=== PATIENT | male | born 1975 | race American Indian/Alaskan Native ===

== ENCOUNTER 2018-05-04 23:10 | Observation (INO) | payer SELFPAY ==
[2018-05-04 23:11] VITALS: BMI 38.4
--- NOTE | 2018-05-05 03:58 | ED PDOC ---
HPI: Psych/Substance Abuse Time Seen by Provider: 05/05/18 00:55 Chief Complaint (Nursing): Psychiatric Evaluation Chief Complaint (Provider): Psychiatric Evaluation History Per: Patient History/Exam Limitations: no limitations Onset/Duration Of Symptoms: Days (x 1) Current Symptoms Are (Timing): Still Present Modifying Factor(s): Alcohol Associated Symptoms: Suicidal Thoughts Additional Complaint(s): 42 year old male with a history of IVDA and alcohol abuse presents to the ED via EMS for evaluation of suicidal ideation. Patient reports feeling depressed with suicidal thoughts for one week, worsening today, prompting visit to the ED. Patient states he has a plan to get a gun and shoot himself. He appears to be intoxicated and admits to drinking alcohol tonight. Offers no medical complaints. PMD: none Past Medical History Reviewed: Historical Data Vital Signs: Last Vital Signs Temp 97.8 F 05/05/18 00:37 Pulse 79 05/05/18 00:37 Resp 18 05/05/18 00:37 BP 170/108 H 05/05/18 00:37 Pulse Ox 100 05/05/18 00:37 - Medical History PMH: Depression, Diabetes, HTN, Post Traumatic Stress Disorder - Surgical History Surgical History: No Surg Hx - Family History Family History: States: Unknown Family Hx - Immunization History Hx Tetanus Toxoid Vaccination: No Hx Influenza Vaccination: No Hx Pneumococcal Vaccination: No - Home Medications Home Medications: Ambulatory Orders Medication Instructions Recorded Famotidine [Pepcid] 20 mg PO BID #20 tab 03/25/17 Ibuprofen [Motrin Tab] 600 mg PO Q8 #30 tab 03/25/17 chlordiazePOXIDE [Chlordiazepoxide 25 mg PO BID 03/25/17 HCl] metFORMIN [glucOPHAGE] 500 mg PO BID 03/25/17 Gabapentin [Neurontin] 300 mg PO BID #60 cap 04/01/18 hydrOXYzine HCl [Atarax] 25 mg PO DAILY PRN #30 tab 04/01/18 metFORMIN [glucOPHAGE] 500 mg PO BID #60 tab 04/01/18 traZODone [Desyrel] 100 mg PO HS PRN #30 tab 04/01/18 - Allergies Allergies/Adverse Reactions: Allergies Allergy/AdvReac Type Severity Reaction Status Date / Time No Known Allergies Allergy Verified 05/05/18 00:37 Review of Systems ROS Statement: Except As Marked, All Systems Reviewed And Found Negative Psych: Positive for: Suicidal ideation Physical Exam - Reviewed Nursing Documentation Reviewed: Yes Vital Signs Reviewed: Yes - Physical Exam Appears: Positive for: Non-toxic, No Acute Distress (appears intoxicated) Head Exam: Positive for: ATRAUMATIC, NORMAL INSPECTION, NORMOCEPHALIC Skin: Positive for: Normal Color, Warm, Dry Eye Exam: Positive for: EOMI, Normal appearance, PERRL Neck: Positive for: Normal, Painless ROM, Supple Cardiovascular/Chest: Positive for: Regular Rate, Rhythm. Negative for: Murmur Respiratory: Positive for: Normal Breath Sounds. Negative for: Wheezing, Respiratory Distress Gastrointestinal/Abdominal: Positive for: Normal Exam, Soft. Negative for: Tenderness, Mass, Guarding Back: Positive for: Normal Inspection. Negative for: L CVA Tenderness, R CVA Tenderness Extremity: Positive for: Normal ROM. Negative for: Deformity Neurological/Psych: Positive for: Awake, Alert, Normal Tone, Mood/Affect (flat affect). Negative for: Motor/Sensory Deficits - Laboratory Results Result Diagrams: 05/06/18 04:30 05/06/18 04:30 - ECG O2 Sat by Pulse Oximetry: 100 (RA) Pulse Ox Interpretation: Normal Medical Decision Making Medical Decision Makin:42 Impression: alcohol intoxication and suicidal ideation Initial Plan: --Acetaminophen --Salicylate --UDS --CBC --BMP --Crisis evaluation --1:1 observation 07:00 Patient will be signed to Dr. Dominguez pending repeat CBC and reevaluation. Scribe Attestation: Documented by Elizabeth Carney acting as a scribe for Esme Crowe MD. Provider Scribe Attestation: All medical record entries made by the Scribe were at my direction and personally dictated by me. I have reviewed the chart and agree that the record accurately reflects my personal performance of the history, physical exam, medical decision making, and the department course for this patient. I have also personally directed, reviewed, and agree with the discharge instructions and disposition. Disposition - Clinical Impression Clinical Impression: Depression, Abnormal electrocardiogram [ECG] [EKG], Substance abuse - Patient ED Disposition Is Patient to be Admitted: Transfer of Care - Disposition Disposition: Transfer of Care Disposition Time: 07:00 Condition: FAIR
[2018-05-05 04:31] LABS: BASO # 0.1 K/uL (0.0-0.2); BASO % 1.2 % (0.0-2.0); EOS # 0.2 K/uL (0.0-0.7); EOS % 3.1 % (0.0-4.0); HEMOGLOBIN 13.1 g/dL (12.0-18.0); LYMPH # 2.7 K/uL (1.0-4.3); LYMPH % 40.3 % (20.0-40.0); MEAN CELL VOLUME 84.5 fl (80.0-94.0); MEAN CORPUSCULAR HEMOGLOBIN 28.6 pg (27.0-31.0); MEAN CORPUSCULAR HGB CONC 33.9 g/dL (33.0-37.0); MEAN PLATELET VOLUME 7.2 fl (7.2-11.7); MONO # 0.6 K/uL (0.0-0.8); NEUT # 3.2 K/uL (1.8-7.0); NEUT % 46.4 % (50.0-75.0); NRBC % 0.2 % (0.0-0.0); RBC 4.59 Mil/uL (4.40-5.90); RED CELL DISTRIBUTION WIDTH 13.3 % (11.5-14.5); WHITE BLOOD COUNT 6.8 K/uL (4.8-10.8)
[2018-05-05 04:35] LABS: ACETAMINOPHEN < 10.0 ug/ml (10.0-30.0); SALICYLATE < 1.0 mg/dl
[2018-05-05 04:37] LABS: BLOOD UREA NITROGEN 21 mg/dl (9-20); CALCIUM 9.1 mg/dL (8.4-10.2); GFR NON-AFRICAN AMERICAN > 60
--- NOTE | 2018-05-05 07:23 | ED PDOC ---
- Laboratory Results Result Diagrams: 05/05/18 04:24 05/05/18 04:24 - ECG O2 Sat by Pulse Oximetry: 100 (RA) Pulse Ox Interpretation: Normal Medical Decision Making Medical Decision Makin 42yo male, brought to ER due to suicidal ideation. Patient signed out to me by Dr. Crowe pending crisis evaluation and ER disposition. Bedside rounds performed, patient resting in room comfortably. 721 Patient seen and evaluated by crisis team and per Dr. Nelson, patient to be admitted due to depression. 803 EKG reviewed, patient noted to have gross ST abnormalities in anterolateral leads. no prior ekgs available for comparison in EMR./ Patient admits to using cocaine recently; additionally states he has had intermittent chest pain for the past week, no active chest pain currently. At this time, patient is not medically cleared for psychiatric admission. Patient to be admitted medically, Troponin I ordered; patient given aspirin 3 25mg PO 0849 Discussed with hospitalist business control specialist, and Dr. Ballesteros accepts patient for admission. --- Scribe Attestation: Documented by Shireen Guerra acting as a scribe for Tha Dominguez DO. Provider Scribe Attestation: All medical record entries made by the Scribe were at my direction and personally dictated by me. I have reviewed the chart and agree that the record accurately reflects my personal performance of the history, physical exam, medical decision making, and the department course for this patient. I have also personally directed, reviewed, and agree with the discharge instructions and di sposition. Disposition Counseled Patient/Family Regarding: Studies Performed - Clinical Impression Clinical Impression: Depression, Abnormal electrocardiogram [ECG] [EKG], Substance abuse - POA Present On Arrival: None - Disposition Disposition: Hospitalized as Observation Patient Disposition Time: 09:00 Condition: FAIR
[2018-05-05 08:54] LABS: SPERM URINE RARE /hpf; URINE BILIRUBIN NEGATIVE (NEGATIVE); URINE BLOOD NEGATIVE (NEGATIVE); URINE CLARITY CLEAR (Clear); URINE COLOR YELLOW (YELLOW); URINE GLUCOSE (UA) NEG (NEGATIVE); URINE LEUKOCYTE ESTERASE NEG Leu/uL (Negative); URINE PROTEIN NEGATIVE (NEGATIVE); URINE UROBILINOGEN 0.2-1.0 mg/dL (0.2-1.0)
--- NOTE | 2018-05-05 08:54 | RAD ---
Date of service: 05/05/2018 HISTORY: r/o infiltrate COMPARISON: Chest radiographs 04/12/2015. FINDINGS: LUNGS: No active pulmonary disease. PLEURA: No significant pleural effusion identified, no pneumothorax apparent. CARDIOVASCULAR: No aortic atherosclerotic calcification present. Normal cardiac size. No pulmonary vascular congestion. OSSEOUS STRUCTURES: No significant abnormalities. VISUALIZED UPPER ABDOMEN: Normal. OTHER FINDINGS: None. IMPRESSION: No interval acute cardiopulmonary disease appreciated.
--- NOTE | 2018-05-05 08:59 | CARD ---
APPROVED REPORT Date of service: 05/05/2018 EKG Measurement Heart [id number] <Conclusion> Normal sinus rhythm Possible Left atrial enlargement Left axis deviation T wave abnormality, consider anterolateral ischemia Prolonged QT Abnormal ECG
[2018-05-05 09:13] LABS: BARBITURATES, UR NEGATIVE (NEGATIVE); BENZODIAZEPINES, UR NEGATIVE (NEGATIVE); OPIATES, UR POSITIVE (NEGATIVE); PHENCYCLIDINE, UR POSITIVE (NEGATIVE)
--- NOTE | 2018-05-05 09:13 | CP.PCM.HP ---
<Eric Winters - Last Filed: 05/05/18 14:31> History of Present Illness - History of Present Illness History of Present Illness: 42 yo M with pmhx of htn, DM, depression, IVDA, and alcohol abuse presents to the ED with suicidal ideation. Suicidal thoughts for 1 week. Pt denies current suicidal plan, however, reports history of having a plan to get a gun and shoot himself. While in the ED, EKG showed changes. Pt reported intermittent chest pain, however, denies them at present. Denies HI/A/VH PMD: none Surg: none Soc: smokes 2 cigarettes per day for 4 years. Drinks beers (unknown amt) daily. Reports recent cocaine and heroin use. Famhx: none NKDA Present on Admission - Present on Admission Any Indicators Present on Admission: Yes History of Uncontrolled Diabetes: Yes Review of Systems - Review of Systems Systems not reviewed;Unavailable: Uncooperative, Psychotic - Cardiovascular Cardiovascular: absent: Chest Pain - Respiratory Respiratory: absent: Cough - Gastrointestinal Gastrointestinal: absent: Abdominal Pain Past Patient History - Infectious Disease Hx of Infectious Diseases: None - Past Medical History & Family History Past Medical History?: Yes - Past Social History Smoking Status: Light Smoker < 10 Cigarettes Daily Alcohol: > 2 Drinks/Day Drugs: Cocaine, Opiates - CARDIAC Hx Hypertension: Yes - PULMONARY Hx Tuberculosis: No - NEUROLOGICAL HX Cerebrovascular Accident: No Hx Seizures: No - ENDOCRINE/METABOLIC Hx Endocrine Disorders: Yes Hx Diabetes Mellitus Type 2: Yes - HEMATOLOGICAL/ONCOLOGICAL Hx Cancer: No Hx Human Immunodeficiency Virus (HIV): No - MUSCULOSKELETAL/RHEUMATOLOGICAL Hx Falls: No (pt denied) - GENITOURINARY/GYNECOLOGICAL Hx Sexually Transmitted Disorders: No - PSYCHIATRIC Hx Depression: Yes Hx Post Traumatic Stress Disorder: Yes - SURGICAL HISTORY Hx Surgeries: Yes Hx Cardiac Catheterization: Yes - ANESTHESIA Hx Anesthesia: Yes Hx Anesthesia Reactions: No Meds Allergies/Adverse Reactions: Allergies Allergy/AdvReac Type Severity Reaction Status Date / Time No Known Allergies Allergy Verified 05/05/18 00:37 Physical Exam - Constitutional Appears: Unkempt, Agitated - Eye Exam Eye Exam: EOMI - ENT Exam ENT Exam: Mucous Membranes Moist - Respiratory Exam Respiratory Exam: Clear to Auscultation Bilateral, NORMAL BREATHING PATTERN. absent: Wheezes - Cardiovascular Exam Cardiovascular Exam: REGULAR RHYTHM, +S1, +S2 - GI/Abdominal Exam GI & Abdominal Exam: Normal Bowel Sounds, Soft. absent: Tenderness - Neurological Exam Neurological exam: Alert - Psychiatric Exam Psychiatric exam: Agitated, Anxious, Suicidal Ideation Results - Vital Signs Recent Vital Signs: Last Vital Signs Temp 97.6 F 05/05/18 07:50 Pulse 75 05/05/18 07:50 Resp 19 05/05/18 07:50 BP 150/98 H 05/05/18 07:50 Pulse Ox 100 05/05/18 08:50 - Labs Result Diagrams: 05/05/18 04:24 05/05/18 04:24 Labs: Laboratory Results - last 24 hr 05/05/18 05/05/18 05/05/18 04:24 04:24 04:24 WBC 6.8 RBC 4.59 Hgb 13.1 Hct 38.8 MCV 84.5 MCH 28.6 MCHC 33.9 RDW 13.3 Plt Count 281 MPV 7.2 Neut % (Auto) 46.4 L Lymph % (Auto) 40.3 H [place] % (Auto) 9.0 Eos % (Auto) 3.1 Baso % (Auto) 1.2 Neut # (Auto) 3.2 Lymph # (Auto) 2.7 [place] # (Auto) 0.6 Eos # (Auto) 0.2 Baso # (Auto) 0.1 Sodium 137 Potassium 4.2 Chloride 105 Carbon Dioxide 29 Anion Gap 7 L BUN 21 H Creatinine 0.9 Est GFR ( Amer) > 60 Est GFR (Non-Af Amer) > 60 Random Glucose 74 L Calcium 9.1 Troponin I Urine Color Urine Clarity Urine pH Ur Specific [place] Urine Protein Urine Glucose (UA) Urine Ketones Urine Blood Urine Nitrate Urine Bilirubin Urine Urobilinogen Ur Leukocyte Esterase Urine RBC (Auto) Urine Microscopic WBC Urine Sperm (Auto) Salicylates < 1.0 Urine Methadone Screen Acetaminophen < 10.0 L Ur Amphetamines Screen U Cannabinoids Screen Alcohol, Quantitative < 10 05/05/18 05/05/18 05/05/18 08:30 08:30 08:30 WBC RBC Hgb Hct MCV MCH MCHC RDW Plt Count MPV Neut % (Auto) Lymph % (Auto) [place] % (Auto) Eos % (Auto) Baso % (Auto) Neut # (Auto) Lymph # (Auto) [place] # (Auto) Eos # (Auto) Baso # (Auto) Sodium Potassium Chloride Carbon Dioxide Anion Gap BUN Creatinine Est GFR ( Amer) Est GFR (Non-Af Amer) Random Glucose Calcium Troponin I < 0.0120 Urine Color Yellow Urine Clarity Clear Urine pH 6.0 Ur Specific [place] 1.020 Urine Protein Negative Urine Glucose (UA) Neg Urine Ketones Negative Urine Blood Negative Urine Nitrate Negative Urine Bilirubin Negative Urine Urobilinogen 0.2-1.0 Ur Leukocyte Esterase Neg Urine RBC (Auto) 3 Urine Microscopic WBC 2 Urine Sperm (Auto) Rare H Salicylates Urine Methadone Screen Negative Acetaminophen Ur Amphetamines Screen Negative U Cannabinoids Screen Negative Alcohol, Quantitative Assessment & Plan - Assessment and Plan (Free Text) Assessment: 42 yo M with pmhx of htn, DM, depression, IVDA, and alcohol abuse presents to the ED with suicidal ideation, admitted for acute EKG changes and intermittent chest pain. Plan: Chest pain: -EKG: reviewed -Admit to tele -fret saw operator -Troponin: neg x1 f/u x2 q6 -monitor for chest pain -f/u troponin, EKG Suicidal Ideation -Psychiatry: Dr. Roe: further recs appreciated -1:1 ovservation IVDA -TOX: cocaine, PCP -monitor for withdrawals Diabetes -accuchecks -ICS -hypoglycemia protocol htn -likely 2/2 pcp -monitor bp DVT prophylaxis -SCD Case and plan d/w Dr. Thanh Winters MD PGY2 <Tasia Law - Last Filed: 05/06/18 19:09> Results - Vital Signs Recent Vital Signs: Last Vital Signs Temp 98 F 05/06/18 00:00 Pulse 66 05/06/18 09:00 Resp 22 05/06/18 09:00 BP 140/71 05/06/18 09:00 Pulse Ox 100 05/06/18 04:00 - Labs Result Diagrams: 05/06/18 04:30 05/06/18 04:30 Labs: Laboratory Results - last 24 hr 05/06/18 05/06/18 04:30 04:30 WBC 6.8 RBC 5.03 Hgb 14.2 Hct 43.1 MCV 85.8 MCH 28.3 MCHC 33.0 RDW 13.4 Plt Count 298 Sodium 140 Potassium 4.2 Chloride 107 Carbon Dioxide 26 Anion Gap 11 BUN 13 Creatinine 0.9 Est GFR ( Amer) > 60 Est GFR (Non-Af Amer) > 60 Random Glucose 108 Calcium 9.4 Total Bilirubin 0.7 AST 24 ALT 22 Alkaline Phosphatase 80 Total Protein 6.7 Albumin 3.6 Globulin 3.1 Albumin/Globulin Ratio 1.2 Attending/Attestation - Attestation I have personally seen and examined this patient.: Yes I have fully participated in the care of the patient.: Yes I have reviewed all pertinent clinical information: Yes Notes (Text): 05/06/18 19:08 Agree with findings and plan as above.
[2018-05-05] MEDS ORDERED: Glucagon Recombinant 1 mg Inj IM PRN (09:19)
[2018-05-05] MEDS ORDERED: Dextrose 50% SYRINGE Inj (50 ml) IV PRN (09:19)
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
[2018-05-05] MEDS ORDERED: Alum-Mag Hydrox-Simethicone Susp (30 mL) PO PRN (09:57)
[2018-05-05] MEDS ORDERED: Pneumococcal 23-Valent Vaccine IM ONE (10:51)
[2018-05-05] MEDS ORDERED: Influenza Vaccine (5 YR UP)/PF 60 MCG/0.5 ML SYR IM ONE (11:03)
[2018-05-05] MEDS ORDERED: Influenza Vaccine 60 mcg/0.5 mL SYR (4YR UP) IM ONE (11:15)
[2018-05-06 00:51] VITALS: TEMP 98
[2018-05-06 04:13] VITALS: O2SAT 100
[2018-05-06 05:36] LABS: HEMOGLOBIN 14.2 g/dL (12.0-18.0); MEAN CELL VOLUME 85.8 fl (80.0-94.0); MEAN CORPUSCULAR HEMOGLOBIN 28.3 pg (27.0-31.0); RBC 5.03 Mil/uL (4.40-5.90); RED CELL DISTRIBUTION WIDTH 13.4 % (11.5-14.5); WHITE BLOOD COUNT 6.8 K/uL (4.8-10.8)
[2018-05-06 05:40] LABS: ALB/GLOB RATIO 1.2 (1.0-2.1); ALBUMIN 3.6 g/dL (3.5-5.0); ALT/SGPT 22 U/L (21-72); AST/SGOT 24 U/L (17-59); BLOOD UREA NITROGEN 13 mg/dl (9-20); CALCIUM 9.4 mg/dL (8.4-10.2); GFR NON-AFRICAN AMERICAN > 60
[2018-05-06 08:42] VITALS: BP 140/71
[2018-05-06 09:48] VITALS: PULSE 66; RESP 22
--- NOTE | 2018-05-06 10:17 | CP.PCM.CON ---
History of Present Illness - History of Present Illness History of Present Illness: I have attempted to see the patient at Dr. Giang's request. Patient declined to be examined by me and asked me to leave the room. I have discussed the situation with Dr. Giang. Past Patient History - Infectious Disease Hx of Infectious Diseases: None - Past Medical History & Family History Past Medical History?: Yes - Past Social History Smoking Status: Light Smoker < 10 Cigarettes Daily Alcohol: > 2 Drinks/Day Drugs: Cocaine, Opiates - CARDIAC Hx Hypertension: Yes - PULMONARY Hx Tuberculosis: No - NEUROLOGICAL HX Cerebrovascular Accident: No Hx Seizures: No - ENDOCRINE/METABOLIC Hx Endocrine Disorders: Yes Hx Diabetes Mellitus Type 2: Yes - HEMATOLOGICAL/ONCOLOGICAL Hx Cancer: No Hx Human Immunodeficiency Virus (HIV): No - MUSCULOSKELETAL/RHEUMATOLOGICAL Hx Falls: No (pt denied) - GENITOURINARY/GYNECOLOGICAL Hx Sexually Transmitted Disorders: No - PSYCHIATRIC Hx Depression: Yes Hx Post Traumatic Stress Disorder: Yes - SURGICAL HISTORY Hx Surgeries: Yes Hx Cardiac Catheterization: Yes - ANESTHESIA Hx Anesthesia: Yes Hx Anesthesia Reactions: No Meds Allergies/Adverse Reactions: Allergies Allergy/AdvReac Type Severity Reaction Status Date / Time No Known Allergies Allergy Verified 05/05/18 00:37 - Medications Medications: Current Medications Al Hydrox/Mg Hydrox/Simethicone (Maalox Plus 30 Ml) 30 ml PO QID PRN PRN Reason: Abdominal Discomfort Clonidine HCl (Catapres) 0.1 mg PO Q8 [facility] Stop: 05/08/18 17:01 Last Admin: 05/06/18 08:38 Dose: 0.1 mg Dextrose (Dextrose 50% Inj) 0 ml IV STAT PRN; Protocol PRN Reason: Hypoglycemia Protocol Dextrose (Glutose 15) 0 gm PO ONCE PRN; Protocol PRN Reason: Hypoglycemia Protocol Escitalopram Oxalate (Lexapro) 5 mg PO DAILY [facility] Famotidine (Pepcid) 20 mg PO BID [facility] Last Admin: 05/06/18 08:41 Dose: 20 mg Gabapentin (Neurontin) 300 mg PO BID [facility] Last Admin: 05/05/18 16:08 Dose: 300 mg Glucagon (Glucagen Diagnostic Kit) 0 mg IM STAT PRN; Protocol PRN Reason: Hypoglycemia Protocol Ibuprofen (Motrin Tab) 600 mg PO Q6 PRN PRN Reason: Pain, moderate (4-7) Loperamide HCl (Imodium) 2 mg PO Q4 PRN PRN Reason: After Loose Bowel Movement Lorazepam (Ativan) 0.5 mg IM Q4H PRN PRN Reason: Agitation Ondansetron HCl (Zofran Tab) 4 mg PO Q6 PRN PRN Reason: Nausea/Vomiting Trazodone HCl (Desyrel) 100 mg PO HS PRN PRN Reason: Insomnia Results - Vital Signs Recent Vital Signs: Last Vital Signs Temp 98 F 05/06/18 00:00 Pulse 66 05/06/18 09:00 Resp 22 05/06/18 09:00 BP 140/71 05/06/18 09:00 Pulse Ox 100 05/06/18 04:00 - Labs Result Diagrams: 05/06/18 04:30 05/06/18 04:30 Labs: Laboratory Results - last 24 hr 05/05/18 05/06/18 05/06/18 17:30 04:30 04:30 WBC 6.8 RBC 5.03 Hgb 14.2 Hct 43.1 MCV 85.8 MCH 28.3 MCHC 33.0 RDW 13.4 Plt Count 298 Sodium 140 Potassium 4.2 Chloride 107 Carbon Dioxide 26 Anion Gap 11 BUN 13 Creatinine 0.9 Est GFR ( Amer) > 60 Est GFR (Non-Af Amer) > 60 Random Glucose 108 Calcium 9.4 Total Bilirubin 0.7 AST 24 ALT 22 Alkaline Phosphatase 80 Troponin I < 0.0120 Total Protein 6.7 Albumin 3.6 Globulin 3.1 Albumin/Globulin Ratio 1.2
--- NOTE | 2018-05-06 10:37 | CP.PCM.CON ---
History of Present Illness - History of Present Illness History of Present Illness: This is a 42 yr old male with h/o opiate abuse,cocaine and PCP abuse and recentlly d/c from [facility] detox.and admitted for withdrawl fron opiate and abnormal EKG to ICU and pt was seen by dr lopes in the ER and pt expressed suicudal thoughts wanting to shoot himself and placed on 1:1 observation. .Psych consult requested for reevaluation as pt wants to sign out today and denies any psychiatruc issues. pt states that he was under the influence of multiple drugs including cocaine and opiates and does not recall making any suicidal statement and has no attention of hurting self or otherss.pt understands that he need to go for opiate rehab and [facility] once he is d/c .pt understands his medical issues and need for continued treatment but does not want to stay in hospital and wants to go to opiate rehab.pt is able to contract for safety and willing to seek outpt medical treatment and wants to stop abusing illicit drugs . Past Patient History - Infectious Disease Hx of Infectious Diseases: None - Past Medical History & Family History Past Medical History?: Yes - Past Social History Smoking Status: Light Smoker < 10 Cigarettes Daily Alcohol: > 2 Drinks/Day Drugs: Cocaine, Opiates - CARDIAC Hx Hypertension: Yes - PULMONARY Hx Tuberculosis: No - NEUROLOGICAL HX Cerebrovascular Accident: No Hx Seizures: No - ENDOCRINE/METABOLIC Hx Endocrine Disorders: Yes Hx Diabetes Mellitus Type 2: Yes - HEMATOLOGICAL/ONCOLOGICAL Hx Cancer: No Hx Human Immunodeficiency Virus (HIV): No - MUSCULOSKELETAL/RHEUMATOLOGICAL Hx Falls: No (pt denied) - GENITOURINARY/GYNECOLOGICAL Hx Sexually Transmitted Disorders: No - PSYCHIATRIC Hx Depression: Yes Hx Post Traumatic Stress Disorder: Yes - SURGICAL HISTORY Hx Surgeries: Yes Hx Cardiac Catheterization: Yes - ANESTHESIA Hx Anesthesia: Yes Hx Anesthesia Reactions: No Meds Allergies/Adverse Reactions: Allergies Allergy/AdvReac Type Severity Reaction Status Date / Time No Known Allergies Allergy Verified 05/05/18 00:37 - Medications Medications: Current Medications Al Hydrox/Mg Hydrox/Simethicone (Maalox Plus 30 Ml) 30 ml PO QID PRN PRN Reason: Abdominal Discomfort Clonidine HCl (Catapres) 0.1 mg PO Q8 OSMIN Stop: 05/08/18 17:01 Last Admin: 05/06/18 08:38 Dose: 0.1 mg Dextrose (Dextrose 50% Inj) 0 ml IV STAT PRN; Protocol PRN Reason: Hypoglycemia Protocol Dextrose (Glutose 15) 0 gm PO ONCE PRN; Protocol PRN Reason: Hypoglycemia Protocol Escitalopram Oxalate (Lexapro) 5 mg PO DAILY [facility] Famotidine (Pepcid) 20 mg PO BID [facility] Last Admin: 05/06/18 08:41 Dose: 20 mg Gabapentin (Neurontin) 300 mg PO BID [facility] Last Admin: 05/05/18 16:08 Dose: 300 mg Glucagon (Glucagen Diagnostic Kit) 0 mg IM STAT PRN; Protocol PRN Reason: Hypoglycemia Protocol Ibuprofen (Motrin Tab) 600 mg PO Q6 PRN PRN Reason: Pain, moderate (4-7) Loperamide HCl (Imodium) 2 mg PO Q4 PRN PRN Reason: After Loose Bowel Movement Lorazepam (Ativan) 0.5 mg IM Q4H PRN PRN Reason: Agitation Ondansetron HCl (Zofran Tab) 4 mg PO Q6 PRN PRN Reason: Nausea/Vomiting Trazodone HCl (Desyrel) 100 mg PO HS PRN PRN Reason: Insomnia Physical Exam - Psychiatric Exam Psychiatric exam: Normal Affect, Normal Mood Additional comments: Pt is alert,oriented x3 with intact cogntion.no psychosis.pt adamantly denies suicidal and homicidal ideation.stable mood and fajr insight and wants to go for opiate rehab. Results - Vital Signs Recent Vital Signs: Last Vital Signs Temp 98 F 05/06/18 00:00 Pulse 66 05/06/18 09:00 Resp 22 05/06/18 09:00 BP 140/71 05/06/18 09:00 Pulse Ox 100 05/06/18 04:00 - Labs Result Diagrams: 05/06/18 04:30 05/06/18 04:30 Labs: Laboratory Results - last 24 hr 05/05/18 05/06/18 05/06/18 17:30 04:30 04:30 WBC 6.8 RBC 5.03 Hgb 14.2 Hct 43.1 MCV 85.8 MCH 28.3 MCHC 33.0 RDW 13.4 Plt Count 298 Sodium 140 Potassium 4.2 Chloride 107 Carbon Dioxide 26 Anion Gap 11 BUN 13 Creatinine 0.9 Est GFR ( Amer) > 60 Est GFR (Non-Af Amer) > 60 Random Glucose 108 Calcium 9.4 Total Bilirubin 0.7 AST 24 ALT 22 Alkaline Phosphatase 80 Troponin I < 0.0120 Total Protein 6.7 Albumin 3.6 Globulin 3.1 Albumin/Globulin Ratio 1.2 Assessment & Plan - Assessment and Plan (Free Text) Assessment: Polysubstance abuse and dependence( opiate,cocaine and PCP) Plan: Pt is offered inpt treatment for medical issues as well as detox but pt does not want to stay and willing to go for opiate rehab at [facility].pt infor med about risks of signing out AMA and also benefits of staying in hospital but he still wants to sign out AMA and is competent to sign out against medical advice .pt advised to come back to ER if he has suicidal thoughts or worsening of his medical issues.pt d/c against medical advice.
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
--- NOTE | 2018-05-08 08:06 | CARD ---
APPROVED REPORT Date of service: 05/06/2018 EKG Measurement Heart [id number] <Conclusion> Normal sinus rhythm Possible Left atrial enlargement Incomplete right bundle branch block Left anterior fascicular block T wave abnormality, consider inferolateral ischemia Abnormal ECG
== END 2018-05-06 10:58 | disposition left against medical advice (07) ==
LOC: H.ER 23:10 → H.ERHOLD 05-05 07:21 → INTOOBSV 05-05 07:21 → H.ICU/CCU 05-05 10:16
PROVIDERS: ADMIT Hospitalist; ATTEND Psychiatry & Neurology Psychiatry
DX: F19.94 Other psychoactive substance use, unspecified with psychoactive substance-induced mood disorder (principal); Z23 Encounter for immunization; F32.9 Major depressive disorder, single episode, unspecified; F43.10 Post-traumatic stress disorder, unspecified; I10 Essential (primary) hypertension; R45.851 Suicidal ideations; Z59.0 Homelessness; Z87.891 Personal history of nicotine dependence; Z91.14 Patient's other noncompliance with medication regimen; Z91.410 Personal history of adult physical and sexual abuse; Z79.84 Long term (current) use of oral hypoglycemic drugs; Z79.899 Other long term (current) drug therapy; R94.31 Abnormal electrocardiogram [ECG] [EKG]; E11.9 Type 2 diabetes mellitus without complications; F10.129 Alcohol abuse with intoxication, unspecified; F11.23 Opioid dependence with withdrawal; F14.10 Cocaine abuse, uncomplicated; F16.90 Hallucinogen use, unspecified, uncomplicated; Y90.0 Blood alcohol level of less than 20 mg/100 ml
CPT/HCPCS: 71045; 80048; 80053; 81003; 82948; 84484; 85025; 85027; 87081; 90674; 90732; 93005; 99285; G0008; G0009; G0378; G0480